=== PATIENT | male | born 1985 | race African-American/Black ===

== ENCOUNTER 2020-01-07 06:29 | Emergency (ER) | payer OTHER ==
[~2020-01-07] VITALS: Ht 182.9 cm; Wt 81.5 kg
[2020-01-07 06:29] VITALS: BP 127/76
[2020-01-07] MEDS ORDERED: SODI30SP NS (07:01)
[2020-01-07] MEDS ORDERED: CETI10TA74 PO (07:01)
--- NOTE | 2020-01-07 07:07 | PHYS DOC ---
Adult General Chief Complaint Chief Complaint: NOSEBLEED HPI HPI Patient is a 34-year-old male who presents to the emergency room after having a nosebleed. Patient states that in the last week he has woken up in the morning with a small amount of blood from his nose. This morning he also had a small blood clot that he spit out when he woke up. He has not gotten nosebleeds at any other time. He denies any trauma. The nosebleed stops prior to waking up. He denies any significant amount of blood. He denies any easy bruising or recent fractures. He denies being on any blood thinners. He has no significant medical history. Review of Systems Review of Systems General: Denies fever, chills, sweats, fatigue Eyes: Denies drainage, blurred vision, eye redness HENT: Denies rhinorrhea, sore throat, earache Respiratory: Denies cough, shortness of breath, wheezing Cardiac: Denies edema, palpitations, chest pain GI: Denies abdominal pain, Nausea, vomiting MSK: Denies back pain, neck pain Skin: Denies rash, jaundice Neuro: Denies headache, dizziness Psychiatric: Denies SI/HI Current Medications Current Medications Current Medications Medications (Trade) Dose Ordered Sig/Dayanna Start Time Stop Time Status Last Admin Dose Admin Oxymetazoline HCl (Afrin) 2 spray 1X ONCE 01/07/20 07:00 01/07/20 07:01 UNV Allergies Allergies Allergies Coded Allergies Type Severity Reaction Last Updated Verified No Known Allergies Allergy Unknown 01/07/20 Yes Physical Exam Physical Exam General: Awake, alert, NAD. Well Nourished, well hydrated. Cooperative HEENT: Atraumatic, EOMI, PERRL, airway patent, moist oral mucosa, L sided nasal turbinate swollen, small scab present, no bleeding Neck: Supple, trachea midline Respiratory: CTA bilaterally, normal effort, no wheezing/crackles CV: RRR, no murmur, cap refill <2 GI: Soft, nondistended, nontender, no masses MSK: No obvious deformities Skin: Warm, dry, intact Neuro: A&O x3, speech NL, sensory and motor grossly intact, no focal deficits Psych: Normal affect, normal mood, not suicidal or homicidal EKG EKG [] Radiology/Procedures Radiology/Procedures [] Course & Med Decision Making Course & Med Decision Making Pertinent Labs and Imaging studies reviewed. (See chart for details) Patient is a 34 year old male who presents to the Emergency Room with concerns of repeat nose bleeds. Patient does not have any current bleeding. Nose bleeds are minor according to patient. He does not have any bruising or recent fractures that would raise concern for malignancy. He hasn't had any trauma. He does have swollen nasal turbinates and nasal passages appear dry. This is likely the cause of his small nasal bleeds at night. I have discussed with him that he has if he starts having bruising or these treatments do not help with his nosebleeds then he should return and we will evaluate him for possiblemalignancy. We will place him on Zyrtec and nasal spray. Patient's test results and vitals while in the ED were fully reviewed and discussed with the patient. Patient is stable and at this time does not need admission to the hospital. We have discussed strict return precautions and the importance of following up with their Primary Care Physician. Patient stated understanding and was given an opportunity to ask any questions. Patient is in agreement with plan. Dragon Disclaimer Dragon Disclaimer This electronic medical record was generated, in whole or in part, using a voice recognition dictation system. Departure Departure: Impression: Primary Impression: Epistaxis, recurrent Disposition: 01 HOME/RESIDENCE PRIOR TO ADM Condition: STABLE Referrals: PCP,UNKNOWN (PCP) Patient Instructions: Nosebleed, [id number] Scripts Cetirizine Hcl (ZYRTEC) 10 Mg Tablet 1 TAB PO DAILY for allergic rhinitis, #30 TAB 2 Refills Prov: JEANNE GUILLORY MD 01/07/20 Sodium Chloride (SALINE NASAL SPRAY) 30 Ml [place] 1 SPR NS QID for nosebleed, #60 ML Prov: JEANNE GUILLORY MD 01/07/20 Justification of Admission: Justification of Admission: Justification of Admission Dx: N/A JEANNE GUILLORY MD Jan 07, 2020 07:07
[2020-01-07] MEDS ORDERED: OXYMETAZOLINE 0.05% NASAL SPRAY 30ML BOTTLE. NS ONE (07:15)
== END 2020-01-07 07:13 | disposition home or self-care (01) ==
LOC: ER 06:29
DX: R04.0 Epistaxis (principal)
CPT/HCPCS: 99283